=== PATIENT | male | born 1975 | race Hispanic/Latino ===

== ENCOUNTER 2016-12-18 21:57 | Emergency (ER) | payer SELFPAY ==
[2016-12-18] MEDS ORDERED: CORTISPORIN11 OT (23:02)
[2016-12-18] MEDS ORDERED: AMOXICILLIN500 MG PO (23:02)
[2016-12-18] MEDS ORDERED: PERCOCET 5/325M1 TAB PO (23:02)
[2016-12-18 23:21] VITALS: BP 134/92
== END 2016-12-18 23:21 | disposition home or self-care (01) | DRG 153 ==
LOC: ED 21:57
DX: H66.92 Otitis media, unspecified, left ear (principal); H60.502 Unspecified acute noninfective otitis externa, left ear